=== PATIENT | female | born 1965 | race Caucasian/White ===

== ENCOUNTER 2018-02-10 08:48 | Emergency (ER) | payer MEDICAID ==
[~2018-02-10] VITALS: Ht 177.8 cm; Wt 68.2 kg
[2018-02-10] MEDS ORDERED: LAMO25 PO (08:59)
[2018-02-10] MEDS ORDERED: HYDR-4455 PO (08:59)
[2018-02-10] MEDS ORDERED: LORA1TAB3 PO (08:59)
[2018-02-10 10:40] LABS: APPEARANCE,URINE CLOUDY (CLEAR); BILIRUBIN,URINE NEGATIVE (NEGATIVE); GLUCOSE, URINE (UA) NEGATIVE (NEGATIVE); KETONES,URINE NEGATIVE (NEGATIVE); LEUKOCYTE ESTERASE ,URINE MODERATE (NEGATIVE); NITRATE,URINE NEGATIVE (NEGATIVE); OCCULT BLOOD,URINE MODERATE (NEGATIVE); PH,URINE 7.5 (5.0-8.0); PROTEIN,URINE POS 1+ (NEGATIVE); UROBILINOGEN,URINE 0.2 mg/dL (<=1.0)
[2018-02-10 10:56] LABS: BACTERIA,URINE None Seen /HPF (None Seen); SQUAMOUS EPITHELIAL CELL,UR Few /LPF (None Seen); WBC,URINE 51-100 /HPF (0-5)
[2018-02-10 11:07] VITALS: BP 130/79
== END 2018-02-10 11:16 | disposition home or self-care (01) ==
LOC: EMS 08:50
DX: N39.0 Urinary tract infection, site not specified (principal); Z85.3 Personal history of malignant neoplasm of breast; Z79.899 Other long term (current) drug therapy
CPT/HCPCS: 87086; 99284